=== PATIENT | female | born 1990 | race Two or more races ===

== ENCOUNTER 2023-02-22 03:50 | Emergency (ER) | payer OTHER ==
[~2023-02-22] VITALS: Ht 165.1 cm; Wt 74.8 kg
[2023-02-22] MEDS ORDERED: MORPHINE SULFATE INJ 2 MG/ML DISP.SYRIN IV ONE ×3 (04:00→13:30)
[2023-02-22] MEDS ORDERED: MORPHINE SULFATE INJ 4 MG/ML DISP.SYRIN ONE (04:02)
[2023-02-22 04:12] LABS: BASOPHILS % (AUTO) 0.1 % (0.0-2.0); EOSINOPHILS % (AUTO) 0.3 % (0.0-6.0); HEMATOCRIT 35 % (33-45); HEMOGLOBIN 11.6 g/dL (11.5-14.8); LYMPHOCYTES # (AUTO) 2.3 K/uL (0.8-4.8); LYMPHOCYTES % (AUTO) 28.5 % (20.0-44.0); MEAN CORPUSCULAR HGB CONC 33 g/dl (31.0-36.0); MEAN CORPUSCULAR VOLUME 87 fL (82-100); MONOCYTES # (AUTO) 0.6 K/uL (0.1-1.30); MONOCYTES % (AUTO) 7.7 % (2.0-12.0); NEUTROPHILS % (AUTO) 63.4 % (43.0-81.0); PLATELET COUNT (AUTO) 232 K/uL (150-450); RED BLOOD CELL COUNT(AUTO) 4.07 MIL/uL (4.0-5.2); WHITE BLOOD COUNT (AUTO) 7.9 K/uL (4.3-11.0)
--- NOTE | 2023-02-22 04:30 | NUR ---
Pt is noted in bed alert, responsive as she came from home C/O Right Abdominal pain , Radiating to back 10/10 x2hrs. Pt care continue as LAB and urine sent and Morphine 4mg IVP given.
[2023-02-22 04:34] LABS: ALBUMIN 3.7 g/dL (3.4-5.0); BILIRUBIN,DIRECT 0.4 mg/dL (0.0-0.2); BILIRUBIN,TOTAL 0.7 mg/dL (0.2-1.0); CALCIUM, SERUM 8.8 mg/dL (8.5-10.1); CREATININE 0.5 mg/dL (0.6-1.3); POTASSIUM 3.6 mmol/L (3.5-5.1); TOTAL PROTEIN, SERUM 6.9 g/dL (6.4-8.2)
[2023-02-22] MEDS ORDERED: IOHEXOL-300 100 ML VIAL IV ONE (04:43)
[2023-02-22] MEDS ORDERED: IV NS 0.9% 250 ML IV ONE (04:44)
[2023-02-22] MEDS ORDERED: CT SWABBABLE VALVE TRANS SET 1 EA INFUS.SET MC ONE (04:44)
[2023-02-22] MEDS ORDERED: KETOROLAC TROMETHAMINE 15 MG/ML VIAL ONE (04:56)
[2023-02-22] MEDS ORDERED: KETOROLAC TROMETHAMINE INJ 30 MG/ML VIAL IV ONE (05:00)
--- NOTE | 2023-02-22 05:01 | NUR ---
Toradol 15mg IVP given for Right Abdominal pain 08/29. Pt care continue as awaita CT test.
[2023-02-22 05:07] LABS: BILIRUBIN,URINE NEGATIVE (NEGATIVE); COLOR,URINE YELLOW (YELLOW); LEUKOCYTE ESTERASE ,URINE TRACE (NEGATIVE); NITRITE, URINE NEGATIVE (NEGATIVE); PROTEIN,URINE NEGATIVE (NEGATIVE); UGLUCOSE NEGATIVE (NEGATIVE)
[2023-02-22 05:18] LABS: BACTERIA,URINE Rare /HPF (None Seen); RBC,URINE 0-2 /HPF (0-2); SQUAMOUS EPITHELIAL CELL,UR Few /HPF (None Seen)
--- NOTE | 2023-02-22 05:23 | NUR ---
Pt is off the unit from CT. Pt care continue.
--- NOTE | 2023-02-22 05:28 | NUR ---
Pt is noted back from CT with Toradol 15mg IVP noted effective as pain is now 0/10 and pt is sleeping. Pt care continue.
--- NOTE | 2023-02-22 07:15 | NUR ---
Pt care continue as report given to the AM receiving nurse.
--- NOTE | 2023-02-22 07:15 | NUR ---
RECEIVED PT FROM CANDY SORENSON PT ASLEEPY ARUSBLE WHEN CALL MORENA
--- NOTE | 2023-02-22 09:25 | NUR ---
ABDOMINALE US DONE AT BED SIDE
--- NOTE | 2023-02-22 09:45 | NUR ---
Imaging results called and reported to
[2023-02-22] MEDS ORDERED: MORPHINE SULFATE INJ 2 MG/ML DISP.SYRIN ONE ×2 (09:53→13:25)
[2023-02-22] MEDS ORDERED: CEFTRIAXONE 1GM BAG (ER ONLY) 1 GM/50 ML PIGGYBACK IV ONE (10:00)
[2023-02-22] MEDS ORDERED: IV NS 0.9% 1,000 ML IV ONE (10:00)
[2023-02-22] MEDS ORDERED: CEFTRIAXONE 1GM BAG (ER ONLY) 50 ML IV ONE (10:05)
--- NOTE | 2023-02-22 10:42 | NUR ---
DR. JONES SPEAKING WITH DR. OLVERA PT BEING TRANSFERED TO [facility].
--- NOTE | 2023-02-22 10:42 | NUR ---
Patient Tranfers to outside Facility Physician:Dr. Jackson Location:[facility] room [address] Nurse [place] [id number] [phone] [facility] transport arrange call back [phone]
--- NOTE | 2023-02-22 10:54 | NUR ---
eta 1245 pm for BLS ambulance
--- NOTE | 2023-02-22 11:00 | NUR ---
COVID AND MRSA SWAP SENT TO LAB
--- NOTE | 2023-02-22 11:43 | NUR ---
HAND OFF LUCIANA SORENSON [phone]
[2023-02-22 13:45] VITALS: BP 119/66
--- NOTE | 2023-02-22 13:45 | NUR ---
Transfer to [facility] BY BLS AMBLUNCE AWAKE Aand alert vs stable
== END 2023-02-22 13:58 | disposition admitted as inpatient to this hospital (09) ==
LOC: ER 03:52
DX: R10.31 Right lower quadrant pain (principal); Z20.822 Contact with and (suspected) exposure to COVID-19
CPT/HCPCS: 99285; 74177; 96365; 76705; 96375; 87426; 96376; 85025; 80048; 83690; 80076; 84703; 81001; 36415; J2270 ×3; J7030; J7050; J0696; Q9967; J1885; C9803